=== PATIENT | male | born 1950 | race Caucasian/White ===

== ENCOUNTER 2019-05-11 17:41 | Emergency (ER) | payer MEDICARE ==
[2019-05-11] MEDS ORDERED: HYDROCODONE/ACETAMINOPHEN 5-325 MG TABLET PO ONE (19:39)
--- NOTE | 2019-05-11 19:40 | ER Document Report ---
ED Medical Screen (RME) - General Chief Complaint: Shoulder Pain Stated Complaint: SHOULDER PAIN Time Seen by Provider: 05/11/19 19:37 Mode of Arrival: Ambulatory Information source: Patient Notes: Patient presents complaining of right shoulder pain since yesterday. Patient denies any injury or fever. Pain increases with abduction or extension. I have greeted and performed a rapid initial assessment of this patient. A comprehensive ED assessment and evaluation of the patient, analysis of test results and completion of the medical decision making process will be conducted by additional ED providers. - Related Data Allergies/Adverse Reactions: No Known Allergies Allergy (Unverified 05/11/19 19:30) Past Medical History - Social History Frequency of alcohol use: Rare Drug Abuse: None Physical Exam - Vital signs Vitals: Temp Pulse Resp BP Pulse Ox 98.6 F 62 16 148/77 H 96 05/11/19 18:30 05/11/19 18:30 05/11/19 18:30 05/11/19 18:30 05/11/19 18:30 - General Notes: Right shoulder tenderness worse with range of motion, no dislocation or deformity Course - Vital Signs Vital signs: Temp Pulse Resp BP Pulse Ox 98.6 F 62 16 148/77 H 96 05/11/19 18:30 05/11/19 18:30 05/11/19 18:30 05/11/19 18:30 05/11/19 18:30
--- NOTE | 2019-05-11 20:06 | RADIOLOGY REPORT (SQ) ---
EXAM DESCRIPTION: SHOULDER RIGHT 2 OR MORE VIEWS COMPLETED DATE/TIME: 05/11/2019 7:58 pm REASON FOR STUDY: r shoulder pain COMPARISON: None. NUMBER OF VIEWS: Three views. TECHNIQUE: Internal rotation, external rotation, and Y view images acquired of the right shoulder. LIMITATIONS: None. FINDINGS: MINERALIZATION: Normal. BONES: No acute fracture. No worrisome bone lesions. JOINTS: No dislocation. VISUALIZED LUNGS AND RIBS: No pneumothorax. No rib fracture. SOFT TISSUES: Extensive calcification the soft tissues at the insertion of the rotator cuff. OTHER: No other significant finding. IMPRESSION: NEGATIVE STUDY OF THE RIGHT SHOULDER. NO RADIOGRAPHIC EVIDENCE OF ACUTE INJURY. COMMENT: Calcific tendinitis. TECHNICAL DOCUMENTATION: JOB ID: [id number] [employer]- All Rights Reserved Reading location - IP/workstation name: [email or web address]
[2019-05-11] MEDS ORDERED: HYDROCODONE/ACETAMINOPHEN 5-325 MG (6 TAB/ER DISP) PO PRN (22:55)
--- NOTE | 2019-05-11 22:58 | ER Document Report ---
HPI - HPI Time Seen by Provider: 05/11/19 19:37 Pain Level: 4 Context: Patient is a 68-year-old male that comes emergency department for chief complaint of right shoulder pain. He does not usually have pain in the shoulder although he does admit that he remains very active and continues to work. He is right-handed. He denies shortness of breath, chest pain, injury, fever, numbness, or any other complaints. Pain is worse with lifting/abducting the arm. He is very healthy, states he only takes Flomax and vitamins. He is visiting his son out of state. - CONSTITUTIONAL Constitutional: DENIES: Fever, Chills - REPRODUCTIVE Reproductive: DENIES: : - MUSCULOSKELETAL Musculoskeletal: REPORTS: Extremity pain - Rt shoulder pain Past Medical History - General Information source: Patient - Social History Smoking Status: Former Smoker Frequency of alcohol use: Rare Drug Abuse: None Lives with: Family Family History: Reviewed & Not Pertinent Patient has suicidal ideation: No Patient has homicidal ideation: No Past Surgical History: Reports: Hx Appendectomy, Hx Bowel Surgery - resection - Immunizations Immunizations up to date: Yes Hx Diphtheria, Pertussis, Tetanus Vaccination: Yes Vertical Provider Document - CONSTITUTIONAL General Appearance: WD/WN, No Apparent Distress - HEENT HEENT: Atraumatic, Normocephalic - NECK Neck: Normal Inspection - RESPIRATORY Respiratory: Breath Sounds Normal, No Respiratory Distress - CARDIOVASCULAR Cardiovascular: Regular Rate, Regular Rhythm - GI/ABDOMEN Gastrointestinal: Abdomen Soft, Abdomen Non-Tender - BACK Back: Normal Inspection - MUSCULOSKELETAL/EXTREMETIES Musculoskeletal/Extremeties: MAEW, FROM, Tender - Tenderness specifically over the right humeral head and with abduction of the left arm, no tenderness over the AC joint, clavicle, posterior shoulder. Normal neck exam, normal elbow and wrist exam, normal distal neurovascular exam. Normal investment analyst. Normal extremities otherwise. - NEURO Level of Consciousness: Awake, Alert, Appropriate Motor/Sensory: No Motor Deficit, No Sensory Deficit - DERM Integumentary: Warm, Dry, No Rash Course - Re-evaluation Re-evalutation: Patient with obvious point tenderness over the right humeral head area. X-ray showing calcific tendinitis in the same location. This appears to be the cause of the patient's pain. No other complaints, no neurological deficits, no sign of infection on exam with range of motion intact and no redness or severe tenderness over the joint. Unremarkable vital signs. Patient states that he is going to travel back home, he was provided with a sling, instructions, report, and I discussed return precautions. Patient and son in law at bedside state understanding and agreement. - Vital Signs Vital signs: Temp Pulse Resp BP Pulse Ox 98.6 F 62 16 148/77 H 96 05/11/19 18:30 05/11/19 18:30 05/11/19 18:30 05/11/19 18:30 05/11/19 18:30 Procedures - Immobilization Right arm/shoulder Pre-Proc Neuro Vasc Exam: Normal Immobilizer type: Sling Performed by: RN Post-Proc Neuro Vasc Exam: Normal Alignment checked and good: Yes Discharge - Discharge Clinical Impression: Right shoulder pain Qualifiers: Chronicity: acute Qualified Code(s): M25.511 - Pain in right shoulder Condition: Stable Disposition: HOME, SELF-CARE Additional Instructions: Your imaging shows calcium deposits in the tendon at the rotator cuff in the right shoulder. This is causing calcific tendinitis which is most likely the cause of your pain. I recommend icing the area 3-4 times a day, use the sling for comfort, remember to take your arm out and perform full range of motion multiple times a day to avoid freezing of the shoulder. Take the anti- inflammatory as prescribed, you can take Tylenol in addition to this for pain, take the provided stronger pain medications at night to sleep (1 to 2 tablets as needed; these can cause some constipation, consider [id number] stool softener such as MiraLAX as well). Follow-up with orthopedics for additional management. Return for any concerning or worsening symptoms including swelling or redness of the shoulder, fever, or any other concerning or worsening symptoms. Prescriptions: Naproxen [Naprosyn 375 Mg Tablet] 375 mg PO BID #20 tablet Forms: Return to Work
[2019-05-11 23:14] VITALS: BP 149/76
== END 2019-05-11 23:17 | disposition home or self-care (01) ==
LOC: ER 17:41
DX: M25.511 Pain in right shoulder (principal); Z87.891 Personal history of nicotine dependence
CPT/HCPCS: 73030; A9270 ×2; 99283